=== PATIENT | female | born 1965 | race Caucasian/White ===

== ENCOUNTER → 2016-06-18 | Outpatient (CLI) | payer BC ==
[~2016-06-18] MED LIST: ACET325T14 PO; LIDOCAINE/PF 1%-EPI 1:200K, 30ML ONE; METF500T4 PO; NAPR500T3 PO; ROPIvacaine/PF 0.5%, 30 ML ONE
[2016-06-18 10:49] LABS: ASPARTATE AMINO TRANSFERASE 14 U/L (15-37); BLOOD UREA NITROGEN 18 mg/dL (7-18)
== END | disposition home or self-care (01) ==
LOC: STAR 09:24
PROVIDERS: ATTEND Orthopaedic Surgery
DX: Z01.818 Encounter for other preprocedural examination (principal); S83.241A Other tear of medial meniscus, current injury, right knee, initial encounter; X58.XXXA Exposure to other specified factors, initial encounter; Y93.89 Activity, other specified; Y92.89 Other specified places as the place of occurrence of the external cause; Y99.8 Other external cause status
CPT/HCPCS: 36415; 80053; 93005

== ENCOUNTER 2016-07-03 20:19 | Emergency (ER) | payer BC ==
[~2016-07-03] VITALS: Ht 162.6 cm; Wt 103.5 kg
[~2016-07-03 20:19] MED LIST changes: -LIDOCAINE/PF 1%-EPI 1:200K, 30ML ONE; -ROPIvacaine/PF 0.5%, 30 ML ONE
[2016-07-03 20:45] VITALS: BP 134/90
== END 2016-07-03 22:07 | disposition home or self-care (01) ==
LOC: ED 22:01
DX: M25.561 Pain in right knee (principal); G89.18 Other acute postprocedural pain; E11.9 Type 2 diabetes mellitus without complications; E03.9 Hypothyroidism, unspecified; Z88.5 Allergy status to narcotic agent
CPT/HCPCS: 99284